=== PATIENT | female | born 1985 | race Caucasian/White ===

== ENCOUNTER 2018-05-23 21:47 | Emergency (ER) | payer OTHER, MEDICAID, SELFPAY ==
--- NOTE | 2018-05-23 21:49 | DI.RAD.S_ITS ---
PROCEDURE: XR CHEST 2V INDICATIONS: shortness of breath TECHNIQUE: 2 views of the chest were acquired. COMPARISON: None. FINDINGS: Surgical changes and devices: None. Lungs and pleura: No pleural effusions or pneumothorax. Lungs are clear. Mediastinum: Mediastinal contours are normal. Heart size is normal. Bones and chest wall: No suspicious bony abnormalities. Soft tissues appear unremarkable. IMPRESSION: No acute disease. Dictated by: Raghu Retana M.D. on 05/24/2018 at 8:05 Approved by: Raghu Retana M.D. on 05/24/2018 at 8:07
--- NOTE | 2018-05-23 21:53 | ED_ITS ---
HPI - General Adult General Chief complaint: Upper Respiratory Symptoms Stated complaint: COUGH Time Seen by Provider: 05/23/18 21:49 Source: patient Mode of arrival: ambulatory Limitations: no limitations History of Present Illness HPI narrative: Otherwise healthy 32-year-old female here for evaluation of coughing and congestion and not feeling well for the past couple days. No fevers. Has not had a productive cough. Does have a history of allergies and is on Cecilia. Has been taking this medication. No rashes. Related Data Previous Rx's Medication Instructions Recorded azithromycin See Label Instructions .ROUTE 05/23/18 .COMPLEX #6 tab codeine-guaifenesin 10 ml PO Q4-6H PRN #120 ml 05/23/18 Allergies Allergy/AdvReac Type Severity Reaction Status Date / Time No Known Drug Allergies Allergy Verified 05/23/18 22:08 Review of Systems Constitutional Reports fatigue, Denies fever(s) and Denies headache(s) ENT Ears, Nose, Mouth, and Throat: Denies headache(s) Cardiovascular Denies chest pain and Reports dyspnea Respiratory Reports cough, Denies excessive phlegm production, Reports dyspnea and Denies wheezing Gastrointestinal Gastrointestinal: Denies nausea and Denies vomiting Genitourinary Denies dysuria Musculoskeletal Denies myalgias and Denies arthralgias Integumentary/Breasts Denies rash Neurologic Denies headache(s) Endocrine Reports fatigue Hematologic/Lymphatic Denies easy bleeding and Denies easy bruising Allergic/Immunologic Denies wheezing PFSH Medical History Healthy adult (Acute) Surgical History No pertinent past surgical history (Acute) Social History Smoking Status: Unknown if ever smoked Exam Initial Vital Signs Initial Vital Signs: Vital Signs Temperature 98.4 F 05/23/18 22:08 Pulse Rate 95 H 05/23/18 22:08 Respiratory Rate 14 05/23/18 22:08 Blood Pressure 107/71 05/23/18 22:08 Pulse Oximetry 100 05/23/18 22:08 Const General: cooperative and healthy appearing Orientation: alert, awake and oriented x3 HENMT Head: normal to inspection and normocephalic Resp Effort & Inspection: normal respiratory effort Auscultation: rhonchi right upper and right lower Cardio Rate: regular rate Rhythm: regular rhythm Pulses: radial pulses present GI Inspection: non-distended Palpation: soft, No firm and No tender Skin Lesions: no lesions Rashes: no rashes Neuro General: alert, awake and oriented x3 Extrem General: normal to inspection and capillary refill normal Psych Appearance: grossly normal and well kempt Course Orders Ordered: ED Orders 05/23/18 21:49 XR chest 2V Stat Vital Signs - 8 hr 05/23/18 22:08 05/23/18 23:27 05/23/18 23:28 Temperature 98.4 F Pulse Rate 95 H 77 70 Respiratory Rate 14 Blood Pressure 107/71 112/70 Blood Pressure [Right Arm] 130/97 H Pulse Oximetry 100 100 99 Medical Decision Making Imaging Data Chest x-ray: Attestation: I personally reviewed and interpreted this imaging study as follows: My impression: Increased pulmonary vascular markings bilaterally. Potentially right middle lobe infiltrates. MDM Narrative Medical decision making narrative: Patient not in respiratory distress however does have coarse breath sounds bilaterally and chest x-ray concerning for right- sided pneumonia. She is not having any fevers and does not have a productive cough. She is taking Cecilia. I encouraged her to continue this. Will send home with Tsering with codeine for the cough. Informed her that I would recommend that she wait for the next couple days to see if her symptoms do not improve. If they do not improve or she does worsen next couple days that she can fill the prescription of antibiotics which I gave her this evening to take for diagnosis of pneumonia. Patient was given return precautions. She expressed understanding and agreement with plan. Discharge Plan Departure Patient Disposition: Home Clinical Impression: Upper respiratory infection Discharge Date/Time: 05/23/18 23:29 Interventions: ED Discharge Assessment Last Done: 05/23/18 23:28 Instructions: Cough, DI for Viral Upper Respiratory Infection -- Adult Activity Restrictions/Additional Instructions: Recommend that you continue with the Cecilia. I also recommend that you add Flonase or Nasonex to this regiment. Take the other medications as directed. I would recommend that you hold on the antibiotics for the next couple days. If your symptoms worsen or do not improve then fill this prescription and start taking it as directed. Prescriptions: New azithromycin 250 mg tablet See Label Instructions .ROUTE .COMPLEX Qty: 6 RF: 0 codeine-guaifenesin 10-100 mg/5 mL liquid 10 ml PO Q4-6H PRN (Reason: cough) Qty: 120 RF: 0
[2018-05-23 22:08] VITALS: BP 107/71; PULSE 95; RESP 14; TEMP 36.9; O2SAT 100; BMI 31.4
[2018-05-23 23:27] VITALS: BP 130/97; PULSE 77; O2SAT 100
[2018-05-23 23:28] VITALS: BP 112/70; PULSE 70; O2SAT 99
== END 2018-05-23 23:29 | disposition home or self-care (01) ==
PROVIDERS: Emergency Provider Emergency Medicine
DX: J06.9 Acute upper respiratory infection, unspecified (principal)
CPT/HCPCS: 71046; 99282; 99285

== ENCOUNTER → 2019-01-09 13:38 | Outpatient (CLI) | payer OTHER, MEDICAID, SELFPAY ==
--- NOTE | 2019-01-09 13:39 | DI.US.S_ITS ---
PROCEDURE: US PELVIC COMPLETE INDICATIONS: IUD PLACEMENT TECHNIQUE: Real-time scanning was performed of the pelvic organs, with image documentation. Additional endovaginal scanning was necessary due to incomplete visualization of the adnexal and endometrial structures by transabdominal scanning. COMPARISON: None. FINDINGS: Transabdominal scanning: Limited scanning through the kidneys shows no hydronephrosis. No pathologic free abdominal or pelvic fluid. Endovaginal scanning: Uterus: Uterus is anteverted and normal in size at 8.6 x 6.7 x 5.5 cm. The endometrium measures 7 mm in combined thickness. IUD centered in the endometrial canal. Ovaries: Normal. No mass or cystic lesion. Normal Doppler. Right ovary measures 2.9 x 1.4 x 1.6 cm. Left ovary measures 2.3 x 1.9 x 1.6 cm. IMPRESSION: 1. Satisfactory appearance of the IUD centered in the endometrial canal. 2. Normal uterus and ovaries. No free fluid in the pelvis. Dictated by: Tae Callahan M.D. on 01/09/2019 at 14:49 Approved by: Tae Callahan M.D. on 01/09/2019 at 14:53
== END ==
PROVIDERS: PCP Family Medicine; Visit Provider Family Medicine
DX: Z30.431 Encounter for routine checking of intrauterine contraceptive device (principal); T83.32XA Displacement of intrauterine contraceptive device, initial encounter
CPT/HCPCS: 76830; 76856

== ENCOUNTER → 2019-04-08 09:37 | Outpatient (CLI) | payer OTHER, MEDICAID, SELFPAY ==
[2019-04-08 10:39] LABS: Appearance Urine UA SL CLOUDY; Bilirubin Urine UA NEGATIVE (NEGATIVE); Color Urine UA YELLOW; Glucose Urine UA NEGATIVE (Negative); Ketones Urine UA NEGATIVE (NEGATIVE); Leukocyte Esterase Urine UA NEGATIVE (NEGATIVE); Nitrite Urine UA NEGATIVE (Negative); Occult Blood Urine UA 2+ (Negative); Protein Urine UA NEGATIVE (Negative); Specific Gravity Urine UA 1.025 (1.000-1.035); Urobilinogen Urine UA 0.2 E.U./dL (0.2)
[2019-04-08 10:51] LABS: Add Manual Diff / Slide Review NO; Basophils Absolute Auto 100 /uL (0-100); Basophils Percent Auto 1.2 % (0-2); Eosinophils Absolute Auto 100 /uL (0-450); Eosinophils Percent Auto 1.4 % (2-4); Hemoglobin 14.7 g/dL (12.0-16.0); Lymphocytes Absolute Auto 1900 /uL (1100-4500); Lymphocytes Percent Auto 29.2 % (25-40); Mean Corpuscular HGB Conc 34.3 % (30-36); Mean Corpuscular Hemoglobin 30.1 PG (26-34); Mean Corpuscular Volume 87.8 fL (80-100); Monocytes Absolute Auto 400 /uL (0-900); Monocytes Percent Auto 6.2 % (3-14); Neutrophils Absolute Auto 4100 /uL (1500-7000); Platelet Count 230 X10^3/uL (150-400); Red Blood Cell Count 4.89 X10^6/uL (4.0-5.2); Red Cell Distribution Width 13.6 % (11.6-14.8); White Blood Cell Count 6.5 X10^3/uL (4.5-11.0)
[2019-04-08 11:03] LABS: Hemoglobin A1C% w Est Avg Glu 5.2 % (4.0-6.0)
[2019-04-08 11:11] LABS: Alanine Aminotransferase 16 IU/L (<35); Albumin 4.4 g/dL (3.5-5.0); Albumin Globulin Ratio 1.5 (1.0-2.8); Alkaline Phosphatase 71 U/L (38-126); Aspartate Aminotransferase 19 IU/L (14-36); BUN Creatinine Ratio 11.1 (6-22); Bilirubin Total 0.9 mg/dL (0.2-1.3); Blood Urea Nitrogen 10 mg/dL (7-17); Calcium 9.4 mg/dL (8.4-10.2); Carbon Dioxide 26 mmol/L (22-32); Chloride 104 mmol/L (98-107); Cholesterol 162 mg/dL (140-199); Estimated Glomerular Filt Rate > 60.0 mL/min (>60); Globulin 2.9 g/dL (1.7-4.1); Glucose 103 mg/dL (70-100); HDL Cholesterol 39 mg/dL (40-60); HEMOLYSIS < 15 (0-50); LDL Cholesterol Calculated 102 mg/dL (<100); Potassium 4.2 mmol/L (3.4-5.1); Sodium 139 mmol/L (137-145); Total Protein 7.3 g/dL (6.3-8.2); Triglycerides 103 mg/dL (35-150)
[2019-04-08 11:25] LABS: Bacteria Urine Moderate (10-30); Culture Indicated Urine Cult Not Indicated; Mucus Urine 2+ (Negative); RBC Urine 1-5/HPF (0-5/HPF); Squamous Epithelial Cell Urine 5-10 /HPF (0-5/HPF); WBC Urine 1-5/HPF (0-5/HPF)
[2019-04-08 11:38] LABS: Thyroid Stimulating Hormone 2.41 uIU/mL (0.47-4.68)
== END ==
PROVIDERS: PCP Family Medicine; Visit Provider Family Medicine
DX: Z13.220 Encounter for screening for lipoid disorders (principal); Z13.29 Encounter for screening for other suspected endocrine disorder; Z86.32 Personal history of gestational diabetes
CPT/HCPCS: 36415; 80053; 80061; 81003; 81015; 83036; 84443; 85025

== ENCOUNTER → 2019-07-04 10:46 | Outpatient (CLI) | payer OTHER, MEDICAID, SELFPAY | PROVIDERS: PCP Family Medicine; Visit Provider Nurse Practitioner | DX: N39.0 Urinary tract infection, site not specified (principal) | CPT/HCPCS: 87077; 87086; 87186 ==

== ENCOUNTER 2022-03-01 23:58 | Emergency (ER) | payer OTHER, MEDICAID, SELFPAY ==
[2022-03-02 00:05] VITALS: BP 120/69; PULSE 94; RESP 18; TEMP 36.4; O2SAT 96
--- NOTE | 2022-03-02 03:39 | ED_ITS ---
HPI - Ear Problem General Chief complaint: Ear Stated complaint: LEFT SIDE EAR PAIN Time Seen by Provider: 03/02/22 02:13 Source: patient Mode of arrival: Ambulatory History of Present Illness HPI Narrative: 36-year-old female nonsmoker with noncontributory medical history presents with her in the chief complaint of left ear pain over the course of the day. She is had some nasal congestion and sneezing but denies any sore throat or cough. She denies any fever or chills. She states her ear hurts particularly when she touches it or pulls on her earlobe. She denies any drainage or change in her ability to hear. She denies any trauma or injury and has had no recent flights, driving, swimming or other Related Data Home Medications Medication Instructions Recorded Confirmed fexofenadine 180 mg tablet 180 mg PO DAILY 11/04/18 07/04/19 (Cecilia Allergy) Previous Rx's Medication Instructions Recorded phenazopyridine 100 mg tablet 100 mg PO TID PRN pain 6 doses #6 07/04/19 tabs Allergies Allergy/AdvReac Type Severity Reaction Status Date / Time No Known Drug Allergies Allergy Verified 07/04/19 10:31 Review of Systems Review of Systems Narrative: GENERAL: See HPI HEENT: See HPI RESPIRATORY: Denies dyspnea, cough, wheezing, hemoptysis, sputum. CARDIOVASCULAR: Denies chest pain, palpitations, orthopnea, edema, GASTROINTESTINAL: Denies nausea, vomiting, abdominal pain, diarrhea, constipation, melena. : Denies dysuria, frequency, incontinence, hematuria, urinary retention. MUSCULOSKELETAL: denies weakness, joint pain, or bony pain SKIN: Denies rash, skin lesions, or other NEUROLOGIC: Denies weakness, headache, numbness, change in speech, confusion, seizures, incoordination. PSYCHIATRIC: No concerning psychosocial issues. 12 point review of systems is negative except for those stated above Patient History Medical History Chicken pox (~1994) Healthy adult Myopia Seasonal allergies Surgical History No pertinent past surgical history Family History Mother Cancer Grandfather Cancer Grandmother Diabetes mellitus Social History Smoking Status: Never smoker Smoking Status: Never smoker alcohol intake frequency: 0-2 drinks per day Substance Use Type: does not use Exam Narrative Exam Narrative: GEN: AOx3 and in mild distress EYES: Pupils are equal, round, and reactive to light and accommodation. Extraoccular muscles are intact bilaterally. There is no subconjunctival hemorrhage or exudate. ENT: Right TM clear, flat with normal landmarks. Left TM flat and clear with normal landmarks, very minimal clear fusion no bulging traction, external auditory canal without erythema, edema or exudates CHEST: Lungs are clear to auscultation bilaterally and free of wheezes, rales, or rhonchi. Heart rate is regular rhythm, there are no murmurs, clicks, rubs, or gallops. There is no chest wall tenderness. ABD: Abdomen is soft and nontender. There is no guarding or rebound. Bowel sounds are normal in all 4 quadrants. There is no mass or organomegaly. EXT: Full painless ROM of all extremities with no loss of sensation or strength. SKIN: Warm, pink, and dry. No erythema or rash Initial Vital Signs Initial Vital Signs: Vital Signs Temperature 97.5 F L 03/02/22 00:05 Pulse Rate 94 H 03/02/22 00:05 Respiratory Rate 18 03/02/22 00:05 Blood Pressure 120/69 03/02/22 00:05 Pulse Oximetry 96 03/02/22 00:05 Oxygen Delivery Method 03/02/22 00:05 Course Orders Ordered: Discontinued Medications Ketorolac Tromethamine (Ketorolac 30 Mg/Ml Vial) 30 mg IM NOW ONE Stop: 03/02/22 03:49 Last Admin: 03/02/22 03:58 Dose: 30 mg Documented By: AP Vital Signs Vital signs: Vital Signs - 8 hr 03/02/22 00:05 Temperature 97.5 F L Pulse Rate 94 H Respiratory Rate 18 Blood Pressure 120/69 Pulse Oximetry 96 Oxygen Delivery Method Room Air Medical Decision Making [facility] Narrative Medical decision making narrative: Patient with less than 1 day of left ear pain complains of environmental allergic type symptoms but is otherwise well. She has no systemic complaints such as fever or chills. There is no drainage or evidence of tympanic membrane perforation, exam is very reassuring and there is no evidence of bacterial infection that would require antibiotics. Return precautions discussed and questions answered to her apparent satisfaction Discharge Plan Departure Patient Disposition: Home Clinical Impression: Otalgia of left ear Instructions: DI for Ear Pain-Adult Activity Restrictions/Additional Instructions: *You have been diagnosed with [left ear pain, without indication for antibiotics.] *What to do: *Please consider the use of [id number] cough and cold medication with an antihistamine such as Cecilia and a decongestant such as pseudoephedrine *Please follow up with your primary care provider in 2-3 days, call for an appointment. Let them know you were seen in the Emergency Department and that we ask that you be seen in follow up. We will electronically transmit a record of today's note if your PCP is in our system *Return to Emergency Department if you should have any new, worsening or concerning symptoms Prescriptions: No Action phenazopyridine 100 mg tablet 100 mg PO TID PRN (Reason: pain) Qty: 6 0RF fexofenadine [Cecilia Allergy] 180 mg tablet 180 mg PO DAILY Referrals: rAa Morin DO [Primary Care Provider] - Visit Report Forms: Patient Portal/API
[2022-03-02] MEDS: KETOROLAC 30 MG/ML VIAL IM (03:58)
[2022-03-02 04:06] VITALS: BP 110/65; PULSE 88; RESP 18; O2SAT 98
== END 2022-03-02 04:06 | disposition home or self-care (01) ==
PROVIDERS: Emergency Provider Emergency Medicine; PCP Family Medicine
DX: H92.02 Otalgia, left ear (principal)
CPT/HCPCS: 96372; 99283; J1885

== ENCOUNTER → 2022-04-04 09:54 | Outpatient (CLI) | payer OTHER, MEDICAID, SELFPAY | PROVIDERS: PCP Family Medicine; Visit Provider Registered Nurse | DX: J02.9 Acute pharyngitis, unspecified (principal) | CPT/HCPCS: 87070; 87880 ==